=== PATIENT | male | born 1985 | race Caucasian/White ===

== ENCOUNTER 2017-08-26 11:15 | Emergency (ER) | payer OTHER ==
[2017-08-26 12:07] LABS: AMPHETAMINES NEGATIVE (NEGATIVE); METHADONE NEGATIVE (NEGATIVE); OPIATES(OP13) NEGATIVE (NEGATIVE); OXYCODONE(OXY) NEGATIVE (NEGATIVE); PROPOXYPHENE(PPX) NEGATIVE (NEGATIVE); TRICYCLIC ANTIDEPRESSANTS NEGATIVE (NEGATIVE)
[2017-08-26 12:11] LABS: BASOPHILS % (AUTO) 1 % (0-3); EOSINOPHILS % (AUTO) 0 % (0-9); HEMATOCRIT 49 % (39-53); MEAN CORPUSCULAR HGB CONC 35.5 gm/dl (32.0-36.0); MEAN CORPUSCULAR VOLUME 92 fL (80-100); MONOCYTES % (AUTO) 9.2 % (0-12); NEUTROPHILS % (AUTO) 56.4 % (37-80)
[2017-08-26 12:13] VITALS: TEMP 97.8
[2017-08-26 12:32] LABS: CALCIUM 10.1 mg/dl (8.5-10.1); POTASSIUM 3.3 mMol/L (3.5-5.1)
[2017-08-26] MEDS ORDERED: ALUMINUM/MAGNESIUM 30 ML SUS PO ONE ×2 (12:47→15:14)
[2017-08-26] MEDS ORDERED: ALUMINUM/MAGNESIUM 30 ML SUS ONE ×2 (12:48→15:17)
[2017-08-26] MEDS ORDERED: LORAZEPAM 0.5 MG TAB PO ONE ×3 (13:12→19:54)
[2017-08-26] MEDS ORDERED: METOPROLOL TARTRATE 25 MG TAB ONE (13:13)
[2017-08-26] MEDS ORDERED: LORAZEPAM 0.5 MG TAB ONE ×3 (13:13→19:55)
[2017-08-26] MEDS ORDERED: METOPROLOL TARTRATE 50 MG TAB PO SCH (13:15)
[2017-08-26 14:01] VITALS: RESP 16
[2017-08-26] MEDS ORDERED: ASPIRIN 325 MG TAB ONE ×2 (16:20→16:21)
[2017-08-26] MEDS ORDERED: NIACIN 1000 MG PO SCH (16:35)
[2017-08-26 17:52] VITALS: O2SAT 96
[2017-08-26 19:29] VITALS: BP 134/98; PULSE 92
[2017-08-27] MEDS ORDERED: ASPIRIN 325 MG TAB PO SCH (09:00)
== END 2017-08-26 20:20 | DRG 897 ==
LOC: ED 11:15
DX: F10.10 Alcohol abuse, uncomplicated (principal); F41.9 Anxiety disorder, unspecified; Y90.8 Blood alcohol level of 240 mg/100 ml or more
CPT/HCPCS: 36415; 80048; 80305; 80307; 85025; 99284; 99285

== ENCOUNTER 2018-01-05 19:03 | Emergency (ER) | payer OTHER ==
[2018-01-05] MEDS ORDERED: SODIUM CHLORIDE 0.9% 1000ML 1,000 ML IV ONE ×5 (19:11→19:44)
[2018-01-05] MEDS ORDERED: PROMETHAZINE HYDROCHLORIDE 25 MG/ML SOL IV ONE (19:13)
[2018-01-05] MEDS ORDERED: PANTOPRAZOLE SODIUM 40 MG/10 ML PDS IV ONE (19:13)
[2018-01-05] MEDS: SODIUM CHLORIDE 0.9% FLUSH 10 ML SOL IV PRN ×3 (19:15→22:27)
[2018-01-05] MEDS ORDERED: PANTOPRAZOLE SODIUM 40 MG/10 ML PDS ONE (19:23)
[2018-01-05] MEDS ORDERED: PROMETHAZINE HYDROCHLORIDE 25 MG/ML SOL ONE (19:25)
[2018-01-05] MEDS ORDERED: THIAMINE 100 MG/ML 100 MG/ML SOL IV ONE (19:34)
[2018-01-05] MEDS ORDERED: VANCOMYCIN HYDROCHLORIDE 500 MG PDS IV ONE (19:42)
[2018-01-05] MEDS ORDERED: CEFTRIAXONE 1 GM PDS ONE (19:42)
[2018-01-05] MEDS ORDERED: THIAMINE 100 MG/ML 100 MG/ML SOL ONE (19:43)
[2018-01-05] MEDS ORDERED: VANCOMYCIN HCL 500 MG PDS 1,000 MG in SODIUM CHLORIDE 0.9% 250 ML 250 ML IV ONE (19:43)
[2018-01-05] MEDS ORDERED: CEFTRIAXONE 1 GM PDS 1 GM in SODIUM CHLORIDE 0.9% 50 ML 50 ML IV ONE (19:43)
[2018-01-05 19:44] LABS: HEMATOCRIT 58 % (39-53); HEMOGLOBIN 20.3 gm/dl (13.5-17.7); MEAN CORPUSCULAR HEMOGLOBIN 32.1 pg (27.0-32.0); MEAN CORPUSCULAR HGB CONC 35.2 gm/dl (32.0-36.0); MEAN CORPUSCULAR VOLUME 91 fL (80-100)
[2018-01-05 19:53] LABS: INR 1.04 (0.86-1.12)
[2018-01-05 19:59] LABS: LACTIC ACID 6.8 mMol/L (0.0-2.0)
[2018-01-05 20:04] LABS: ALBUMIN 3.5 gm/dl (3.4-5.0); ALCOHOL 0.126 gm/dl (0.000-0.08); ALKALINE PHOSPHATASE 65 IU/L (46-116); ALT 111 IU/L (14-63); AST 222 IU/L (15-37); BILIRUBIN,TOTAL 1.4 mg/dl (0.2-1.0); BLOOD UREA NITROGEN 16 mg/dl (7-18); CALCIUM 7.8 mg/dl (8.5-10.1); CARBON DIOXIDE 13.5 mEq/L (21-32); CHLORIDE 91 mMol/L (98-107); CREATININE 2.42 mg/dl (0.80-1.30); GLOM FILT RATE 31 mL/min (>60); GLUCOSE 145 mg/dl (74-106); MAGNESIUM 1.9 mg/dl (1.8-2.4); SODIUM 130 mMol/L (136-145); TOTAL PROTEIN 7.5 gm/dl (6.4-8.2); TROP I < 0.017 ng/ml (0.000-0.056)
[2018-01-05 20:13] LABS: BAND NEUTROPHILS % (MANUAL) 13 %; BASOPHILS % (MANUAL) 0 % (0-3); EOSINOPHILS % (MANUAL) 0 % (0-9); LYMPHOCYTES % (MANUAL) 4 % (10-50); MONOCYTES % (MANUAL) 3 % (0-12); NEUTROPHILS % (MANUAL) 80 % (37-80); NORMAL RBCS PRESENT
[2018-01-05] MEDS ORDERED: DEXTROSE/SALINE 0.9% 1,000 ML IV ONE (20:19)
[2018-01-05 20:34] LABS: ABG PH 7.34 (7.35-7.45)
[2018-01-05] MEDS ORDERED: HYDROMORPHONE 1 MG/ML SYRINGE IV ONE (21:09)
[2018-01-05] MEDS ORDERED: HYDROMORPHONE HCL 2 MG/ML SOL ONE (21:11)
[2018-01-05] MEDS ORDERED: PIPERACILLIN/TAZOBACT 3.375 GM 2.25 GM in SODIUM CHLORIDE 0.9% 100 ML 100 ML IV ONE (21:15)
[2018-01-05 21:16] LABS: LACTIC ACID 5.6 mMol/L (0.0-2.0)
[2018-01-05] MEDS ORDERED: PIPERACILLIN/TAZOBACT 3.375 GM PDS IV ONE (21:16)
[2018-01-05 21:28] LABS: CALCIUM 6.7 mg/dl (8.5-10.1); CARBON DIOXIDE 11.6 mEq/L (21-32); CREATININE 1.67 mg/dl (0.80-1.30); POTASSIUM 3.8 mMol/L (3.5-5.1)
[2018-01-05 21:31] VITALS: TEMP 97.1; O2SAT 99
[2018-01-05 22:19] LABS: APPEARANCE,URINE Cloudy; BILIRUBIN,URINE NEGATIVE (NEGATIVE); COLOR,URINE Yellow; GLUCOSE, URINE (UA) NEGATIVE (NEGATIVE); KETONES,URINE NEGATIVE (NEGATIVE); LEUKOCYTE ESTERASE ,URINE NEGATIVE (NEGATIVE); NITRATE,URINE NEGATIVE (NEGATIVE); OCCULT BLOOD,URINE 2+ (NEG-TRACE); UROBILINOGEN,URINE 0.2 (0.2-1.0 EU)
[2018-01-05] MEDS ORDERED: LORAZEPAM 2 MG/ML 10ML MDV 2 MG/ML VIAL IV ONE (22:19)
[2018-01-05] MEDS ORDERED: LORAZEPAM 2 MG/ML SOL ONE (22:20)
[2018-01-05 22:30] LABS: BACTERIA NEGATIVE (< 1+); WBC,URINE 0-1 (0-5AV/HPF)
[2018-01-05 22:31] LABS: CRYSTALS 2+ AMORPH URATES (0-3 AVE/HPF)
[2018-01-05 22:32] LABS: AMPHETAMINES NEGATIVE (NEGATIVE); BARBITUATES NEGATIVE (NEGATIVE); BENZODIAZEPINES NEGATIVE (NEGATIVE); CANNABINOL(THC) NEGATIVE (NEGATIVE); COCAINE(COC) NEGATIVE (NEGATIVE); METHADONE NEGATIVE (NEGATIVE); METHAMPHETAMINES NEGATIVE (NEGATIVE); OPIATES(OP13) NEGATIVE (NEGATIVE); OXYCODONE(OXY) NEGATIVE (NEGATIVE); PROPOXYPHENE(PPX) NEGATIVE (NEGATIVE); TRICYCLIC ANTIDEPRESSANTS POSITIVE (NEGATIVE)
[2018-01-05 22:44] VITALS: BP 91/79; PULSE 133; RESP 23
== END 2018-01-05 23:10 | disposition short-term general hospital (02) | DRG 439 ==
LOC: ED 19:03
DX: K85.20 Alcohol induced acute pancreatitis without necrosis or infection (principal); E87.2 Acidosis; N17.9 Acute kidney failure, unspecified; F20.9 Schizophrenia, unspecified; R53.1 Weakness; R11.10 Vomiting, unspecified; R00.0 Tachycardia, unspecified; Y90.6 Blood alcohol level of 120-199 mg/100 ml
CPT/HCPCS: 36415; 36600; 71045; 74176; 80048; 80053; 80305; 80307; 81001; 82009; 82803; 82962; 83735; 84484; 85007; 85027; 85378; 85610; 87040; 93005; 99285; J0696; J1170; J2060; J2543; J2550; J3370; J3411

== ENCOUNTER 2018-06-13 11:37 | Emergency (ER) | payer OTHER ==
[2018-06-13 11:54] VITALS: RESP 16; TEMP 97.1
[2018-06-13] MEDS ORDERED: PANTOPRAZOLE SODIUM 40 MG/10 ML PDS IV ONE (11:54)
[2018-06-13] MEDS ORDERED: KETOROLAC TROMETHAMINE 30 MG/ML SOL IV ONE (11:55)
[2018-06-13] MEDS ORDERED: SODIUM CHLORIDE 0.9% 1000ML 1,000 ML IV SCH (12:00)
[2018-06-13 12:16] LABS: INR 0.94 (0.86-1.12)
[2018-06-13 12:18] LABS: BASOPHILS % (AUTO) 0 % (0-3); EOSINOPHILS % (AUTO) 1 % (0-9); HEMATOCRIT 47 % (39-53); HEMOGLOBIN 15.4 gm/dl (13.5-17.7); LYMPHOCYTES % (AUTO) 12.9 % (10-50); MEAN CORPUSCULAR HEMOGLOBIN 27.1 pg (27.0-32.0); MEAN CORPUSCULAR HGB CONC 32.9 gm/dl (32.0-36.0); MEAN CORPUSCULAR VOLUME 83 fL (80-100); MONOCYTES % (AUTO) 4.8 % (0-12)
[2018-06-13 12:19] LABS: APPEARANCE,URINE Clear; BILIRUBIN,URINE NEGATIVE (NEGATIVE); COLOR,URINE Yellow; GLUCOSE, URINE (UA) 2+ (NEGATIVE); KETONES,URINE 2+ (NEGATIVE); LEUKOCYTE ESTERASE ,URINE NEGATIVE (NEGATIVE); NITRATE,URINE NEGATIVE (NEGATIVE); OCCULT BLOOD,URINE NEGATIVE (NEG-TRACE); PH,URINE 5.5; UROBILINOGEN,URINE 0.2 (0.2-1.0 EU)
[2018-06-13 12:21] LABS: ALBUMIN 4.2 gm/dl (3.4-5.0); BILIRUBIN,TOTAL 0.7 mg/dl (0.2-1.0); CALCIUM 9.2 mg/dl (8.5-10.1); CARBON DIOXIDE 28.3 mEq/L (21-32); CREATININE 0.89 mg/dl (0.80-1.30); POTASSIUM 3.9 mMol/L (3.5-5.1); TOTAL PROTEIN 7.9 gm/dl (6.4-8.2)
[2018-06-13 12:24] LABS: BACTERIA 1+ (< 1+); CRYSTALS NEGATIVE (0-3 AVE/HPF); RBC,URINE 0-2 (0-3AV/HPF); WBC,URINE 0-2 (0-5AV/HPF)
[2018-06-13] MEDS ORDERED: PANTOPRAZOLE SODIUM 40 MG/10 ML PDS ONE (12:24)
[2018-06-13] MEDS ORDERED: KETOROLAC TROMETHAMINE 30 MG/ML SOL ONE (12:24)
[2018-06-13 12:25] LABS: AMPHETAMINES NEGATIVE (NEGATIVE); BARBITUATES NEGATIVE (NEGATIVE); BENZODIAZEPINES NEGATIVE (NEGATIVE); CANNABINOL(THC) POSITIVE (NEGATIVE); COCAINE(COC) NEGATIVE (NEGATIVE); METHADONE NEGATIVE (NEGATIVE); METHAMPHETAMINES NEGATIVE (NEGATIVE); OPIATES(OPI) NEGATIVE (NEGATIVE); OXYCODONE(OXY) NEGATIVE (NEGATIVE); PROPOXYPHENE(PPX) NEGATIVE (NEGATIVE); TRICYCLIC ANTIDEPRESSANTS POSITIVE (NEGATIVE)
[2018-06-13 12:29] LABS: ALCOHOL 0.004 gm/dl (0.000-0.08)
[2018-06-13 13:24] VITALS: BP 111/75; PULSE 75; O2SAT 97
== END 2018-06-13 13:18 | disposition home or self-care (01) | DRG 392 ==
LOC: ED 11:37
DX: K29.00 Acute gastritis without bleeding (principal); R73.9 Hyperglycemia, unspecified
CPT/HCPCS: 80053; 80305; 80307; 81001; 85025; 85610; 96365; 96374; 96375; 99283; J1885